=== PATIENT | male | born 1980 | race Caucasian/White ===

== ENCOUNTER → 2017-11-09 | Outpatient (CLI) | payer BC ==
--- NOTE | 2017-11-09 16:04 | US ---
EXAMINATION TYPE: US kidneys/renal and bladder DATE OF EXAM: 11/09/2017 COMPARISON: NONE CLINICAL HISTORY: N20.2 Calculus of kidney with calculus of ureter. extreme left sided pain yesterday , xray at clinic showed renal stones, microscopic hematuria, no pain today EXAM MEASUREMENTS: Right Kidney: 10.2 x 5.7 x 6.1 cm Left Kidney: 14.4 x 5.8 x 6.3 cm Right Kidney: 0.9cm echogenic foci with posterior shadowing, somewhat lobular cortical contour is not ed Left Kidney: enlarged kidney with hydronephrosis seen, along with multiple echogenic foci, largest 2 within inferior pole = 1.3cm each Bladder: wnl Bilateral Jets seen: yes There is no ascites. Cortical medullary differentiation is maintained. IMPRESSION: Findings suggest nephrolithiasis bilaterally. Mild left hydronephrosis.
== END | disposition home or self-care (01) ==
LOC: RADUSWWP 12:46
PROVIDERS: ATTEND Family Medicine
DX: N13.2 Hydronephrosis with renal and ureteral calculous obstruction (principal)
CPT/HCPCS: 76770

== ENCOUNTER → 2022-09-21 | Outpatient (CLI) | payer BC ==
--- NOTE | 2022-09-21 16:57 | XR ---
EXAMINATION TYPE: XR KUB DATE OF EXAM: 09/21/2022 2:56 PM INDICATION: Patient age:Male; 42 years old; Reason for study: N20.1 CALCULUS OF URETER; . COMPARISON: Ultrasound 11/09/2017 TECHNIQUE: One radiographic view of the abdomen was obtained. FINDINGS: The bowel gas pattern is nonspecific without dilated loops of small or large bowel. There i s no evidence for organomegaly or pneumoperitoneum. The osseous structures are intact. Right 6 mm is projecting over the kidney. The 7 mm calculus projecting over the inferior pole left kidney. Fecal M aterial and gas are demonstrated throughout the colon and rectum. IMPRESSION: 1. Bilateral renal calculi. 2. Nonspecific bowel gas pattern without radiographic evidence for acute process.
== END | disposition home or self-care (01) ==
LOC: RADXRMAIN 14:42
PROVIDERS: ATTEND Urology
DX: N20.2 Calculus of kidney with calculus of ureter (principal)
CPT/HCPCS: 74018

== ENCOUNTER → 2022-10-05 | Outpatient (CLI) | payer BC ==
--- NOTE | 2022-10-05 09:19 | XR ---
EXAMINATION TYPE: XR KUB DATE OF EXAM: 10/05/2022 COMPARISON: 09/21/2022 INDICATION: Ureteral stone TECHNIQUE: Single view abdomen spine view FINDINGS: Impression normal colonic bowel gas pattern. Psoas margins are normal. No organomegaly is present. There is a 0.7 cm calcification just above the left L4 transverse process present previously. The chuy pected right renal stone is not identified on the current examination. Phleboliths within the pelvis. IMPRESSION: 1. Stable appearance left mid ureteral stone.
[2022-10-05 16:56] LABS: BUN/Creat Ratio 10.44 Ratio (12.00-20.00); Blood Urea Nitrogen 9.4 mg/dL (9.0-27.0); Calcium 9.5 mg/dL (8.7-10.3); Carbon Dioxide 24.4 mmol/L (21.6-31.8); Chloride 107 mmol/L (96-109); Glucose 110 mg/dL (70-110); Potassium 4.2 mmol/L (3.5-5.5); Sodium 141 mmol/L (135-145)
[2022-10-05 17:19] LABS: Basophils # (A) 0.06 X 10*3/uL (0.00-0.10); Basophils % (A) 1.5 %; Eosinophils # (A) 0.26 X 10*3/uL (0.04-0.35); Eosinophils % (A) 6.5 %; HCT 46.7 % (39.6-50.0); HGB 15.8 d/dL (13.0-17.0); Lymphocytes # (A) 1.27 X 10*3/uL (0.90-5.00); Lymphocytes % (A) 31.7 %; MCH 30.1 pg (27.0-32.0); MCHC 33.8 d/dL (32.0-37.0); Mean Platelet Volume 9.8 FL (9.5-12.2); Monocytes # (A) 0.32 X 10*3/uL (0.20-1.00); NRBC Per 100 WBC 0 X 10*3/uL (0.00-0.01); Neutrophils # (A) 2.06 X 10*3/uL (1.80-7.70); Neutrophils % (A) 51.3 %; Platelet Count 211 X 10*3/uL (140-440); RBC 5.25 X 10*6/uL (4.40-5.60); RDW 12.4 % (11.5-14.5); WBC 4.01 X 10*3/uL (4.50-10.00)
== END | disposition home or self-care (01) ==
LOC: RADXRMAIN 08:34
PROVIDERS: ATTEND Urology
DX: N20.1 Calculus of ureter (principal)
CPT/HCPCS: 74018; 80048; 85025

== ENCOUNTER 2022-10-08 06:46 | Day surgery (SDC) | payer BC ==
--- NOTE | 2022-10-07 07:57 | P.GSHP ---
History of Present Illness H&P Date: 10/07/22 Chief Complaint: Left renal colic The patient is a 42-year-old white male with a history of calcium oxalate urolithiasis. He underwent left ureteroscopy with Holmium laser lithotripsy in November 2017. He now presents with left flank and groin pain due to a left mid ureteral calculus, adjacent to the transverse process of L4. The calculus appears to measure 4X7 mm in size. - Constitutional Constitutional: Denies chills, Denies fever - Gastrointestinal Gastrointestinal: Denies nausea, Denies vomiting - Genitourinary (Male) Genitourinary: Reports flank pain, Reports kidney stones, Denies hematuria Past Medical History Additional Past Medical History / Comment(s): kidney stones. eczema History of Any Multi-Drug Resistant Organisms: None Reported Additional Past Surgical History / Comment(s): lithotripsy, wisdom teeth. Past Anesthesia/Blood Transfusion Reactions: No Reported Reaction Smoking Status: Never smoker - Past Family History Mother Family Medical History: Diabetes Mellitus, Hypertension Medications and Allergies Home Medications Medication Instructions Recorded Confirmed Type Ibuprofen [Motrin Ib] 400 mg PO DIRECTED PRN 10/01/22 10/01/22 History Unk Hydrocortisone Cream 1 applic TOPICAL DAILY PRN 10/01/22 10/01/22 History Unk Mulit Vitamin 1 tab PO DAILY 10/01/22 10/01/22 History Allergies Allergy/AdvReac Type Severity Reaction Status Date / Time Sulfa (Sulfonamide Allergy Rash/Hives Verified 10/01/22 15:23 Antibiotics) Surgical - Exam - General well developed, well nourished, no distress - Respiratory normal respiratory effort - Abdomen Abdomen: soft, non tender, no guarding, no rigid, no rebound - Psychiatric oriented to time, oriented to person, oriented to place, speech is normal, memory intact Results - Imaging Abdominal x-ray: report reviewed, image reviewed Assessment and Plan (1) Calculus of ureter Status: Acute Code(s): N20.1 - CALCULUS OF URETER SNOMED Code(s): 27504471 Plan: The patient has been treated with observation, but the calculus is failed to migrate distally within the past month. Therefore, he has elected to undergo ureteroscopic removal of the calculus via cystoscopy, left ureteroscopy with Holmium laser lithotripsy and possible stone basketing, left ureteral stent insertion. He is aware of potential risks, which include anesthesia, infection, inability to remove the calculus, and ureteral injury.
[~2022-10-08 06:46] MED LIST: DEXAMETHASONE SOD PHOSPHATE 4 MG/ML 1 ML VIAL IV ONE; HYDROmorphone 0.5 MG/0.5 ML SYRINGE IVP PRN; LACTATED RINGERS 1,000 ML IV SCH; LIDOCAINE 1% (10MG/ML) FOR IV START INTRADERMA PRN; MIDAZOLAM 2 MG/2 ML VIAL IV PRN; ONDANSETRON 4 MG/2 ML VIAL IVP ONE
[2022-10-08] MEDS ORDERED: LIDOCAINE 2% INJ 20 MG/ML (2 ML VIAL) ONE (08:14)
[2022-10-08] MEDS ORDERED: fentaNYL (PF) 50 MCG/ML 2 ML AMP ONE (08:14)
[2022-10-08] MEDS ORDERED: MIDAZOLAM 2 MG/2 ML VIAL ONE (08:14)
[2022-10-08] MEDS ORDERED: NEOSTIGMINE 1 MG/ML 10 ML VIAL ONE (08:14)
[2022-10-08] MEDS ORDERED: GLYCOPYRROLATE 0.2 MG/ML 2 ML VIAL ONE (08:14)
[2022-10-08] MEDS ORDERED: PROPOFOL 10 MG/ML 20 ML VIAL IV ONE (08:14)
[2022-10-08] MEDS ORDERED: ROCURONIUM 10 MG/ML (5 ML VIAL) IV ONE (08:14)
[2022-10-08] MEDS ORDERED: SUCCINYLCHOLINE CHLORIDE 200 MG/10 ML VIAL IV ONE (08:14)
[2022-10-08] MEDS ORDERED: IOPAMIDOL-370 100ML BTL MISCELLANE ONE ×2 (08:36)
[2022-10-08 09:30] VITALS: RESP 16; TEMP 97.6
--- NOTE | 2022-10-08 09:36 | FL ---
Fluoroscopy History: LEFT URETERAL CALCULUS 42 sec FL 4.6215 DAP dose
[2022-10-08 11:04] VITALS: BP 128/78; PULSE 73
--- NOTE | 2022-10-08 12:37 | P.OP ---
Date of Procedure: 10/08/22 Preoperative Diagnosis: Left ureteral calculus Postoperative Diagnosis: Left ureteral calculus, left renal calculus, left ureteral stricture Procedure(s) Performed: Cystoscopy, left ureteroscopy with Holmium laser lithotripsy and stone basketing, balloon dilation of left ureteral stricture, left ureteral stent insertion Anesthesia: CAMMYA Surgeon: Zacarias Chaparro Estimated Blood Loss (ml): 5 IV fluids (ml): 600 Pathology: other (left ureteral calculus fragments, sent for chemical analysis) Condition: stable Disposition: PACU Indications for Procedure: The patient is a 42-year-old white male with a history of calcium oxalate urolithiasis. He underwent left ureteroscopy with Holmium laser lithotripsy in November 2017. He now presents with left flank and groin pain due to a left mid ureteral calculus, adjacent to the transverse process of L4. The calculus appears to measure 4X7 mm in size. Operative Findings: Left mid ureteral stricture, successfully dilated. Left mid ureteral calculus, fragmented completely. Left mid pole renal calculus, removed via stone basketing. Description of Procedure: The patient was taken to the operating room and placed in the dorsolithotomy position, with legs supported in Cipriano stirrups. The external genitalia was prepped and draped sterilely. The 30 lens was used to introduce the 21-Prydeinig Mojica cystoscopic sheath through the urethra and into the bladder under direct vision. The prostatic urethra showed evidence of mild lateral lobe enlargement. The bladder was examined in its entirety. Both ureteral orifices were normal anatomic location and configuration, and clear urine effluxed from both. No tumors or foreign bodies were seen. A 0.038 inch Glidewire was passed through the cystoscope. The left ureteral orifice was cannulated, and the Glidewire was advanced beyond the calculus adjacent to L4 and up to the renal pelvis. The cystoscope was removed, and an 11/13-Prydeinig ureteral access catheter was passed over the wire, up to the mid ureter distal to the calculus. The flexible ureteroscope was then passed through the ureteral access catheter sheath and advanced under direct vision. A wide caliber stricture was noted distal to the calculus, through which the ureteroscope could not be advanced. Therefore, the Glidewire was passed up to the left renal pelvis, and the ureteroscope was removed. An 18-Prydeinig, 4 centimeter balloon dilating catheter was passed over the wire and used to dilate the ureteral stricture. Once this was completed, ureteroscopy was repeated. The calculus had refluxed into the kidney and locate d within a mid pole calyx. The 200 micron Holmium laser probe was passed through the ureteroscope, and lithotripsy was performed. After fragmenting the calculus, each calculus fragment was removed using a 1.9-Prydeinig 0 tip nitinol basket. After removing all calculus fragments, each calyx was examined. An additional calculus was identified within a lower pole calyx, and this was removed via stone basketing. Pullout ureteroscopy showed no residual calculi within the ureter, and no evidence of ureteral trauma. The Glidewire was advanced up to the left renal pelvis, and after removing the ureteroscope the Glidewire was backloaded into the cystoscope, which was passed into the bladder. A 26 cm, 6-Prydeinig double-J ureteral stent was placed over the wire. Proper stent positioning was verified fluoroscopically and endoscopically. The removed bladder calculus fragments were sent for chemical analysis. The bladder was emptied and the cystoscope removed. The patient tolerated the procedure well and was taken to the recovery room in stable condition.
== END 2022-10-08 11:30 | disposition home or self-care (01) ==
LOC: OR 06:46
PROVIDERS: ATTEND Urology
DX: N20.2 Calculus of kidney with calculus of ureter (principal); N13.5 Crossing vessel and stricture of ureter without hydronephrosis; L30.9 Dermatitis, unspecified; Z83.3 Family history of diabetes mellitus; Z82.49 Family history of ischemic heart disease and other diseases of the circulatory system; Z88.2 Allergy status to sulfonamides; Z79.899 Other long term (current) drug therapy
CPT/HCPCS: 82365; 52356; C2625; C1769; J2250; J0330; J1100; J2710; J0690; J2405; J3010; J2704; Q9967; J2001

== ENCOUNTER → 2022-12-07 | Outpatient (CLI) | payer BC ==
--- NOTE | 2022-12-07 14:09 | XR ---
EXAMINATION TYPE: XR KUB DATE OF EXAM: 12/07/2022 1:13 PM CLINICAL INDICATION:Male, 42 years old with history of N20.0 Calculus of kidney N20.[address]; [facility] COMPARISON: None. TECHNIQUE: One radiographic view of the abdomen was obtained. FINDINGS: The bowel gas pattern is nonspecific without dilated loops of small or large bowel. There i s no evidence for organomegaly or pneumoperitoneum. The osseous structures are intact. No abnormal calcifications are present. Fecal material and gas are demonstrated throughout the colon and rectum. Calcification and fourth transverse is not visualized. A calculus projects over the right kidney sreina suring 5 mm. IMPRESSION: Right renal calcification measuring 5 mm. Left ureteral calcification near the fourth transverse process on the left is not definitively visual ized.
--- NOTE | 2022-12-07 14:38 | US ---
EXAMINATION TYPE: US kidneys/renal and bladder DATE OF EXAM: 12/07/2022 COMPARISON: 10/05/2022 CLINICAL INDICATION: Male, 42 years old with history of N20.0 Calculus of kidney N20.1 Calculus of Ur eter; recent removal of left kidney stones, h/o stones for years, no pain today EXAM MEASUREMENTS: Right Kidney: 12.0 x 4.8 x 5.1 cm cortical medullary differentiation is maintained. Left Kidney: 11.6 x 5.4 x 5.9 cm cortical medullary differentiation is maintained. Right Kidney: 0.7 cm echogenic area with shadowing may represent a stone. Left Kidney: No hydronephrosis or masses seen Bladder: wnl IMPRESSION: 1. No evidence for obstructive uropathy. 2. Right nonobstructing renal calculus.
== END | disposition home or self-care (01) ==
LOC: RADUSWWP 11:56
PROVIDERS: ATTEND Urology
DX: N20.2 Calculus of kidney with calculus of ureter (principal); N28.89 Other specified disorders of kidney and ureter
CPT/HCPCS: 74018; 76770

== ENCOUNTER → 2023-12-23 | Outpatient (CLI) | payer BC ==
--- NOTE | 2023-12-23 17:39 | US ---
EXAMINATION TYPE: US scrotum with doppler. DATE OF EXAM: 12/23/2023 COMPARISON: NONE CLINICAL INDICATION: Male, 43 years old with history of R10.2 PELVIC AND PERINEAL PAIN; Left groin pa in TECHNIQUE: Grayscale, color Doppler and spectral Doppler imaging of the scrotum. FINDINGS: EXAM MEASUREMENTS: TESTICLES: Right Testicle: 4.0 x 2.2 x 2.8 cm Left Testicle: 4.2 x 2.1 x 2.7 cm EPIDIDYMIS HEAD: Right Epididymis: 1.1 cm Left Epididymis: 1.3 cm Doppler performed to assess for testicular vascularity; good bilateral color flow and spectral wavefo delvis are seen. There is no evidence of testicular torsion. Presence of hydroceles: small complex fluid collection medial to left testicle = 3.1cm Presence of varicoceles: no Left groin: normal appearing lymph nodes visualized, largest = 1.0cm IMPRESSION: 1. No suspicious changes to suggest torsion. 2. Small complex fluid collection adjacent to the left testicle. Consider infection [facility], , 12/23/2023 5:37 PM
== END | disposition home or self-care (01) ==
LOC: RADUSWWP 15:09
PROVIDERS: ATTEND Family Medicine
DX: R10.2 Pelvic and perineal pain (principal)
CPT/HCPCS: 76870; 93975

== ENCOUNTER → 2024-01-06 | Outpatient (CLI) | payer BC ==
--- NOTE | 2024-01-06 13:20 | US ---
EXAMINATION TYPE: US scrotum with doppler. DATE OF EXAM: 01/06/2024 COMPARISON: NONE CLINICAL INDICATION: Male, 43 years old with history of N50.812 LEFT TESTICULAR PAIN; Pain x 3 weeks; scanned a few weeks ago - fluid pocket found and patient was put on antibiotics; patient stats pain is the same TECHNIQUE: Grayscale, color Doppler and spectral Doppler imaging of the scrotum. FINDINGS: EXAM MEASUREMENTS: TESTICLES: Right Testicle: 4.3 x 2.2 x 2.6 cm Left Testicle: 4.4 x 1.8 x 2.8 cm EPIDIDYMIS HEAD: Right Epididymis: 1.2 x 1.2 x 0.9 cm Left Epididymis: 1.2 x 0.8 x 1.8 cm Doppler performed to assess for testicular vascularity; good bilateral color flow and spectral wavefo delvis are seen. There is no evidence of testicular torsion. Presence of hydroceles: No Presence of varicoceles: No Area seen on last exam not seen on this exam IMPRESSION: 1. No evidence for intratesticular mass. 2. Appropriate arterial and venous spectral waveforms to the testes. [facility], , 01/06/2024 1:18 PM
== END | disposition home or self-care (01) ==
LOC: RADUSWWP 12:40
PROVIDERS: ATTEND Family Medicine
DX: N50.812 Left testicular pain (principal)
CPT/HCPCS: 76870; 93975

== ENCOUNTER 2024-04-11 07:18 | Day surgery (SDC) | payer BC ==
[2024-04-11 07:37] VITALS: TEMP 97.1
[2024-04-11] MEDS: ONDANSETRON 4 MG/2 ML VIAL IVP STA (07:41)
[2024-04-11] MEDS: LACTATED RINGERS 1,000 ML BAG IV STA (07:41)
[2024-04-11] MEDS: IV FLUID CONTINUATION 1,000 ML IV ONE (07:44)
[2024-04-11] MEDS ORDERED: PROPOFOL 10 MG/ML 20 ML VIAL IV ONE (08:27)
[2024-04-11] MEDS ORDERED: LIDOCAINE 1% INJ 10MG/ML (20 ML MDV) ONE (08:27)
--- NOTE | 2024-04-11 08:55 | P.PCN ---
Date of Procedure: 04/11/24 Procedure(s) Performed: Brief history: Patient is a pleasant 43-year-old white male scheduled for an elective upper endoscopy as well as colonoscopy as a part of evaluation of recent episode of acute food impaction that happened 6 weeks ago and screening for colon cancer Procedure performed: Esophagogastroduodenoscopy with biopsy and dilation Colonoscopy with snare polypectomy Preoperative diagnosis: Recent episode of acute food impaction Screening colon cancer Anesthesia: MAC Procedure: After informed consent was obtained from the patient was brought into the endoscopy unit and IV sedation was administered by anesthesia under continuous monitoring. Initially upper endoscopy was done. The Olympus GF 160 video endoscope was inserted inserted into the mouth and esophagus intubated without any difficulty and was gradually advanced into the stomach and duodenum and carefully examined. The bulb and second part of the duodenum appeared normal. The scope was then withdrawn into the stomach adequately insufflated with air and upon careful examination the antrum gastritis and biopsies were done from this area. Mucosa of the body, cardia and fundus appeared normal. The scope was then withdrawn into the esophagus. Mild hiatal hernia noted. The GE junction was located at 40 cm to the incisors. There was a distal esophageal stricture identified the 15 to 18 mm TTS balloon for 60 seconds. There were no erosions or ulcerations seen.. Rest of the esophagus appeared normal. Biopsies were done from the mid and distal esophagus rule out eosinophilic esophagitis patient tolerated the procedure well. At this time the patient continued to remain sedation. Initial digital rectal examination was normal. Olympus CF 160 video colonoscope was then inserted into the rectum and gradually advanced to the cecum without any difficulty. Careful examination was performed as the scope was gradually being withdrawn. The prep was excellent. The cecum, ascending colon, transverse colon, descending colon, normal. The sigmoid colon there was a 5 mm, 6 mm and 8 mm polyp that was removed by cold snare polypectomy. Scattered sigmoid diverticulosis seen. Rest of the sigmoid colon and rectum appeared normal. Retroflexion was performed in the rectum and no lesions were noted. Patient tolerated the procedure well. Impression: 1. Upper endoscopy revealed small hiatal hernia and distal esophageal stricture status post balloon dilation using 15 to 18 mm TTS balloon as described above and mild antral gastritis 2. Colonoscopy revealed 5 mm, 6 mm and 8 mm sigmoid colon polyp status post cold snare polypectomy and scattered sigmoid diverticulosis Recommendations: Findings of this examination were discussed with the patient as well as his family. He was advised to follow-up with the biopsy results. If the biopsy reveals adenoma he can have repeat colonoscopy in 5 years. In the meantime he will continue on omeprazole 20 mg daily and follow-up with the biopsy results. He will be seen in the office in 2 to 3 weeks.
[2024-04-11 10:00] VITALS: BP 131/81; PULSE 77; RESP 14
== END 2024-04-11 10:09 | disposition home or self-care (01) ==
LOC: ORWHC2ENDO 07:18
PROVIDERS: ATTEND Internal Medicine Gastroenterology
DX: Z12.11 Encounter for screening for malignant neoplasm of colon (principal); D12.5 Benign neoplasm of sigmoid colon; K57.30 Diverticulosis of large intestine without perforation or abscess without bleeding; K22.2 Esophageal obstruction; K21.00 Gastro-esophageal reflux disease with esophagitis, without bleeding; K44.9 Diaphragmatic hernia without obstruction or gangrene; K29.50 Unspecified chronic gastritis without bleeding; D72.10 Eosinophilia, unspecified; Z91.89 Other specified personal risk factors, not elsewhere classified; Z79.899 Other long term (current) drug therapy; Z87.19 Personal history of other diseases of the digestive system; Z88.2 Allergy status to sulfonamides
CPT/HCPCS: 45385; 43239; 43249; J2405; J2003; J2704; C1726; 88305